=== PATIENT | female | born 1975 | race Caucasian/White ===

== ENCOUNTER 2021-02-19 21:14 | Emergency (ER) | payer OTHER, SELFPAY ==
--- NOTE | 2021-02-19 | ECG_ITS ---
Test Reason : CHEST PAIN Blood Pressure : / mmHG Vent. Rate : 070 BPM Atrial Rate : 070 BPM P-R Int : 150 ms QRS Dur : 074 ms QT Int : 368 ms P-R-T Axes : 063 035 045 degrees QTc Int : 397 ms Normal sinus rhythm Normal ECG No previous ECGs available Referred By: Generic ED Physician Electronically Signed By:LONDON VICKERS MD
--- NOTE | ~2021-02-19 | CT_ITS ---
EXAMINATION: CT CHEST WITH CONTRAST CLINICAL INFORMATION: Left-sided chest pain. Suspect pericarditis. COMPARISON: Radiograph 02/19/2021. TECHNIQUE: Multidetector volumetric CT imaging of the chest was obtained after the administration of 65 mL of Omnipaque 350 intravenous contrast without immediate adverse reactions. Axial MIP volume rendering provided. Sagittal and coronal reformatted images were obtained. This CT examination was performed using dose optimization techniques as appropriate, variously including the following: *Automated exposure control *Adjustment of mA and/or kV according to patient size (this includes techniques or standardized protocols for targeted exams where dose is matched to indication/reason for exam; i.e. extremities or head) *Use of iterative reconstruction technique DLP: 322 mGy-cm FINDINGS: Lungs: Clear. No groundglass opacities or areas of pulmonary consolidation. Jenny: No pleural effusions or pneumothoraces. Mediastinum: No lymphadenopathy. Normal caliber of the thoracic aorta and of the main and central pulmonary arteries. No pericardial thickening or abnormal pericardial fluid collections. Normal heart size. CHEST WALL: No axillary lymphadenopathy. Visualized abdominal structures: Normal adrenal glands. Osseous structures. Minimal multilevel anterior endplate osteophytosis of the thoracic spine. No thoracic vertebral body compression deformities. CT/CT chest w con IMPRESSION: -Minimal multilevel chronic spondylosis of the thoracic spine; otherwise, normal IV contrast-enhanced CT of the thorax. Lungs clear. No pericardial thickening or abnormal pericardial fluid collections.
--- NOTE | ~2021-02-19 | XR_ITS ---
EXAMINATION: XR CHEST CLINICAL INFORMATION: Lobe/lung pain COMPARISON: None TECHNIQUE: Frontal view of the chest was obtained. FINDINGS: No significant abnormality is noted involving the heart, lungs, mediastinum, bony thorax or soft tissues. A cardiac monitoring device obscures the aortic arch. XR/XR chest 1V IMPRESSION: No acute intrathoracic disease.
[2021-02-19 21:44] VITALS: BP 151/89; PULSE 95; RESP 18; TEMP 36.8; O2SAT 99; BMI 34.1
[2021-02-19 22:32] LABS: MANUAL DIFF FLAG NO
[2021-02-19 22:33] LABS: Basophils Absolute Auto 0.1 X10*3/uL (0.0-0.2); Basophils Percent Auto 0.6 % (0-2); Eosinophils Absolute Auto 0.2 X10*3/uL (0.0-0.4); Eosinophils Percent Auto 2.1 % (0-4); Hematocrit 43.9 % (37.0-47.0); Imm Gran Abs Auto 0.07 X10*3/uL (0.00-0.03); Imm Gran Pct Auto 0.7 % (0.0-0.4); Lymphocytes Absolute Auto 2.9 X10*3/uL (1.2-4.9); Lymphocytes Percent Auto 29.5 % (20-40); Mean Corpuscular HGB Conc 31.9 g/dl (31.0-35.0); Mean Corpuscular Hemoglobin 26.9 pg (27.0-33.0); Mean Corpuscular Volume 84.4 fL (80.0-98.0); Mean Platelet Volume 9.5 fL (9.4-12.3); Monocytes Absolute Auto 0.8 X10*3/uL (0.1-1.2); Monocytes Percent Auto 7.8 % (2-11); Neutrophils Absolute Auto 5.9 x10*3/uL (2.0-8.3); Neutrophils Percent Auto 59.3 % (45-73); Platelet Count 310 X10*3/uL (160-400); Red Cell Distribution Width 13.1 % (11.0-16.0); White Blood Count 9.9 X10*3/uL (4.8-10.8)
[2021-02-19 22:45] LABS: Anion Gap 14 (12-20); Blood Urea Nitrogen 17 mg/dL (9-16); Calcium 9.9 mg/dL (8.4-10.2); Carbon Dioxide 26 mmol/L (22-29); Chloride 104 mmol/L (96-108); Creatinine Clr Calc Pharmacy 77.7; Estimated Glomerular Filt Rate 58; Glucose Random 98 mg/dL (60-115); Potassium 4.3 mmol/L (3.3-5.1); Sodium 140 mmol/L (135-145)
[2021-02-19 22:52] LABS: Troponin-I High Sensitivity < 3.5 ng/L (<3.5-17.0)
--- NOTE | 2021-02-20 00:49 | ED_ITS ---
HPI - General Adult General Chief complaint: General Medical Stated complaint: Left sided chest pain Time Seen by Provider: 02/20/21 00:48 Source: patient Mode of arrival: ambulatory History of Present Illness HPI narrative: This is a 46-year-old female without significant past medical history who presents with complaints of left-sided chest pain that is sharp in nature and has worsened over the past 2-3 days without associated fever, chills, recent illness, or trauma. patient states that the pain increases significantly with deep inspiration and that she is completely unable to lie back without excruciating pain and has to keep herself in a upright sitting position. She has tried to use NSAIDs with limited success a was seen at [facility] last night but left due to the long wait times. Patient also denies any recent travel, smok ing, calf pain/ swelling. Patient is currently on a Holter monitor to evaluate Related Data Previous Rx's Medication Instructions Recorded colchicine 0.6 mg tablet 0.6 mg PO BID #60 tab 02/20/21 Allergies Allergy/AdvReac Type Severity Reaction Status Date / Time No Known Allergies Allergy Verified 02/19/21 21:44 Review of Systems Review of Systems: Pertinent positives and negatives as stated in HPI 10 po int review of systems is otherwise negative. PMFSH Past Medical History Source: nursing notes reviewed Medical History GERD (gastroesophageal reflux disease) Migraines Social History Social History Advance Directives: No Advance Directives Information Provided: Yes Patient : No Physical Exam Vital Signs: Vital Signs: Last Vital Signs Temp 98.2 F 02/19/21 21:44 Pulse 95 02/19/21 21:44 Resp 18 02/19/21 21:44 BP 151/89 H 02/19/21 21:44 Pulse Ox 99 02/19/21 21:44 Body Mass Index 34.1 VITAL SIGNS: Reviewed. GENERAL: Well developed, well nourished, in no acute distress. HEAD: Normocephalic/atraumatic EYES: PERRLA, EOMI OROPHARYNX: no oral lesions noted, posterior pharynx clear NECK: Supple, no adenopathy LUNGS: Normal breath sounds. No adventitious sounds or accessory muscle use. SpO2<99>, no chest wall tenderness CARDIOVASCULAR: Regular rate and rhythm without noted murmurs but questionable rub ABDOMEN: Soft, non-tender, non-distended with bowel sounds. NEUROLOGIC: Alert and oriented x 4. Strength and sensation to light touch were grossly intact x 4. Course Course Course Narrative: 46-year-old female with history and clinical presentation suggestive of possible pericarditis and doubt PE or cardiac ischemia and possib ility of acid reflux/ GERD or pancreatitis. On review of all investigations there are no acute findings to suggest pancreatitis, cardiac ischemia, or pneumonia. Patient was reassessed after administration of GI cocktail without resolution discomfort and the decision was made to proceed with CT of the chest with IV contrast as there was low clinical suspicion for PE and this study was conducted primarily in an effort to identify possible imaging evidence pericarditis versus occult source presenting pain. Review of the results of the CT scan without acute findings. Patient will be empirically treated for pericarditis given the character nature of her chest pain in conjunction with friction rub and she received initial dose of colchicine here in the emergency room. NSAID treatment was avoided given patient's underlying GERD. All results and findings were discussed with the patient at bedside and she was discharged home in stable condition. Medical Decision Making Lab Data Result diagrams: 02/19/21 22:14 02/19/21 22:14 Labs: Lab Results 02/19/21 02/19/21 02/19/21 Range/Units 22:14 22:14 22:14 WBC 9.9 (4.8-10.8) X10*3/uL RBC 5.20 (4.20-5.50) X10*6/uL Hgb 14.0 (12.0-16.0) g/dl Hct 43.9 (37.0-47.0) % MCV 84.4 (80.0-98.0) fL MCH 26.9 L (27.0-33.0) pg MCHC 31.9 (31.0-35.0) g/dl RDW 13.1 (11.0-16.0) % Plt Count 310 (160-400) X10*3/uL MPV 9.5 (9.4-12.3) fL Immature Gran % (Auto) 0.7 H (0.0-0.4) % Neut % (Auto) 59.3 (45-73) % Lymph % (Auto) 29.5 (20-40) % [place] % (Auto) 7.8 (2-11) % Eos % (Auto) 2.1 (0-4) % Baso % (Auto) 0.6 (0-2) % Lymph # (Auto) 2.9 (1.2-4.9) X10*3/uL [place] # (Auto) 0.8 (0.1-1.2) X10*3/uL Eos # (Auto) 0.2 (0.0-0.4) X10*3/uL Baso # (Auto) 0.1 (0.0-0.2) X10*3/uL Abs Immat Gran (auto) 0.07 H (0.00-0.03) X10*3/uL Absolute Neuts (auto) 5.9 (2.0-8.3) x10*3/uL Absolute Nucleated RBC 0.000 (0.0-0.012) X10*3/uL Nucleated RBC % (auto) 0.0 (0.0-0.2) /100WBC D-Dimer High Sensitivty NG/ML Sodium 140 (135-145) mmol/L Potassium 4.3 (3.3-5.1) mmol/L Chloride 104 (96-108) mmol/L Carbon Dioxide 26 (22-29) mmol/L Anion Gap 14 (12-20) BUN 17 H (9-16) mg/dL Creatinine 1.03 (0.5-1.4) mg/dL Estim Creat Clear Calc 77.7 Estimated GFR 58 Random Glucose 98 (60-115) mg/dL Calcium 9.9 (8.4-10.2) mg/dL Total Bilirubin 0.4 (0.0-1.0) mg/dL Direct Bilirubin 0.2 (0.0-0.5) mg/dL AST 17 (5-31) U/L ALT 15 (0-31) U/L Alkaline Phosphatase 83 (39-117) U/L Troponin I High Sens < 3.5 (<3.5-17.0) ng/L Total Protein 7.8 (6.5-8.0) g/dL Albumin 4.2 (3.5-5.0) g/dL Lipase 55 (8-78) U/L 11/30/21 Range/Units 01:40 WBC (4.8-10.8) X10*3/uL RBC (4.20-5.50) X10*6/uL Hgb (12.0-16.0) g/dl Hct (37.0-47.0) % MCV (80.0-98.0) fL MCH (27.0-33.0) pg MCHC (31.0-35.0) g/dl RDW (11.0-16.0) % Plt Count (160-400) X10*3/uL MPV (9.4-12.3) fL Immature Gran % (Auto) (0.0-0.4) % Neut % (Auto) (45-73) % Lymph % (Auto) (20-40) % [place] % (Auto) (2-11) % Eos % (Auto) (0-4) % Baso % (Auto) (0-2) % Lymph # (Auto) (1.2-4.9) X10*3/uL [place] # (Auto) (0.1-1.2) X10*3/uL Eos # (Auto) (0.0-0.4) X10*3/uL Baso # (Auto) (0.0-0.2) X10*3/uL Abs Immat Gran (auto) (0.00-0.03) X10*3/uL Absolute Neuts (auto) (2.0-8.3) x10*3/uL Absolute Nucleated RBC (0.0-0.012) X10*3/uL Nucleated RBC % (auto) (0.0-0.2) /100WBC D-Dimer High Sensitivty 277 NG/ML Sodium (135-145) mmol/L Potassium (3.3-5.1) mmol/L Chloride (96-108) mmol/L Carbon Dioxide (22-29) mmol/L Anion Gap (12-20) BUN (9-16) mg/dL Creatinine (0.5-1.4) mg/dL Estim Creat Clear Calc Estimated GFR Random Glucose (60-115) mg/dL Calcium (8.4-10.2) mg/dL Total Bilirubin (0.0-1.0) mg/dL Direct Bilirubin (0.0-0.5) mg/dL AST (5-31) U/L ALT (0-31) U/L Alkaline Phosphatase (39-117) U/L Troponin I High Sens (<3.5-17.0) ng/L Total Protein (6.5-8.0) g/dL Albumin (3.5-5.0) g/dL Lipase (8-78) U/L ECG Data Attestation: I personally reviewed and interpreted this ECG as follows: Prior ECG tracings: not available for review Interpretation: Normal sinus rhythm, HR - 70, no STEMI, GA/ QRS /QTC are wi thin normal limits. Discharge Plan Discharge Clinical Impression: Pericarditis Patient Disposition: Home, Self-Care Instructions: Colchicine (By mouth), Acute Pericarditis (ED) Additional Instructions: 1. Please follow-up with your primary care provider regarding re-evaluation further outpatient follow-up. Return to the ER for acute worsening of symptoms. Prescriptions: New colchicine 0.6 mg tablet 0.6 mg PO BID Qty: 60 RF: 0 Referrals: Lexie Mejia NP [Primary Care Provider] - 2 days
[2021-02-20 01:04] LABS: Alanine Aminotransferase 15 U/L (0-31); Albumin Level 4.2 g/dL (3.5-5.0); Alkaline Phosphatase 83 U/L (39-117); Aspartate Amino Transferase 17 U/L (5-31); Bilirubin Direct 0.2 mg/dL (0.0-0.5); Bilirubin Total 0.4 mg/dL (0.0-1.0); Lipase 55 U/L (8-78); Total Protein 7.8 g/dL (6.5-8.0)
[2021-02-20] MEDS: Lidocaine HCl Viscous 2 % 15 ML SOLUTION 10 ML MUCOUS MEM (01:53)
[2021-02-20] MEDS: Magnesium Hydrox/Alum Hydrox 30 ML ORAL.SUSP PO (01:53)
[2021-02-20 02:03] LABS: D Dimer High Sensitivity 277 NG/ML
[2021-02-20] MEDS: iohexoL 350 MG/ML 100 ML INFUS..BTL 65 ML IV (04:24)
[2021-02-20] MEDS: Acetaminophen 325 MG TABLET 975 MG PO (07:34)
[2021-02-20] MEDS: Ketorolac Tromethamine 30 MG/ML VIAL 15 MG IM (07:34)
[2021-02-20] MEDS: Colchicine 0.6 MG TABLET PO (07:34)
[2021-02-20 07:36] VITALS: BP 123/60; PULSE 91; RESP 15; O2SAT 97
== END 2021-02-20 07:43 | disposition home or self-care (01) ==
PROVIDERS: Emergency Provider Student in an Organized Health Care Education/Training Program; PCP Nurse Practitioner Family
DX: I31.9 Disease of pericardium, unspecified (principal); K21.9 Gastro-esophageal reflux disease without esophagitis
CPT/HCPCS: 36415; 71045; 71260; 80048; 80076; 83690; 84484; 85025; 85379; 93005; 96372; 99284; J1885; Q9967